=== PATIENT | female | born 1975 | race Caucasian/White ===

== ENCOUNTER 2022-07-15 11:07 | Outpatient (CLI) | payer BC, SELFPAY ==
--- NOTE | 2022-07-15 11:30 | CRLHL7_ITS ---
For Patients: As a result of the Century Cures Act, medical imaging exams and procedure reports are released immediately into your electronic medical record. You may view this report before your referring provider. If you have questions, please contact your health care provider. BILATERAL DIGITAL SCREENING MAMMOGRAM WITH TOMOSYNTHESIS AND COMPUTER-AIDED DETECTION CLINICAL HISTORY: Routine screening exam. COMPARISON: None. TECHNIQUE: Digital mammogram in CC and MLO projections including computer-aided detection (CAD). Tomosynthesis utilized. BREAST COMPOSITION: There are areas of scattered fibroglandular density. FINDINGS: RIGHT Breast: Focal nodular density within the lateral RIGHT breast 9 o`clock 8 cm from the nipple. LEFT Breast: No suspicious findings. IMPRESSION: RIGHT breast asymmetry/mass. RECOMMENDATIONS: Additional mammographic views of the RIGHT breast including 3D spot compression CC/MLO. RIGHT breast ultrasound may also be required. BI-RADS Category 0: Incomplete: Need Additional Imaging Evaluation and/or Prior Mammograms for Comparison [facility] will contact the patient for follow-up. A lay language report of this examination will be provided to the patient. Dictated by Michael Borrego MD @ 07/18/2022 9:19:11 AM jj/Dictated by: Michael Borrego MD @ 07/18/2022 9:19:00 AM (Electronically Signed)
== END 2022-07-15 11:08 | disposition home or self-care (01) ==
LOC: NFLDRAD 11:10
PROVIDERS: PCP Family Medicine; Visit Provider Family Medicine
DX: Z12.31 Encounter for screening mammogram for malignant neoplasm of breast (principal); N63.10 Unspecified lump in the right breast, unspecified quadrant
CPT/HCPCS: 77063; 77067

== ENCOUNTER 2022-07-21 09:35 | Outpatient (CLI) | payer BC, SELFPAY ==
--- NOTE | 2022-07-21 09:45 | CRLHL7_ITS ---
For Patients: As a result of the Cures Act, medical imaging exams and procedure reports are released immediately into your electronic medical record. You may view this report before your referring provider. If you have questions, please contact your health care provider. DIGITAL DIAGNOSTIC RIGHT MAMMOGRAM USING TOMOSYNTHESIS AND COMPUTER-AIDED DETECTION RIGHT BREAST ULTRASOUND CLINICAL HISTORY: RIGHT breast mass/asymmetry. COMPARISON: 07/15/2022. TECHNIQUE: Digital RIGHT mammogram in two projections. Tomosynthesis and CAD utilized. Real-time ultrasound imaging of RIGHT breast with imaging documentation. Scanning was performed by both the technologist and the radiologist. BREAST COMPOSITION: There are areas of scattered fibroglandular density. FINDINGS: 3D spot compression CC/MLO RIGHT breast mammogram images submitted. There is a nodular density within the upper outer quadrant of the RIGHT breast at 10 o`clock 6 cm from the nipple measuring 1 cm. No associated distortion. No adenopathy. Targeted RIGHT breast ultrasound performed in the upper outer quadrant at 10 o`clock 6 cm from the nipple. In this location there is a solid macrolobular hypoechoic mass without abnormal vascularity or distal acoustic shadowing measuring 8 x 10 millimeters. IMPRESSION: Solid 1 cm nodule RIGHT breast 10 o`clock 6 cm from the nipple. RECOMMENDATIONS: Ultrasound-guided core needle biopsy. Results and recommendations discussed with the patient. BI-RADS Category 4: Suspicious A lay language report of this examination will be provided to the patient. Dictated by: Michael Borrego MD @07/21/2022 11:01:39 AM jj/Dictated by: Michael Borrego MD @ 07/21/2022 12:24:00 PM (Electronically Signed)
--- NOTE | 2022-07-21 10:15 | CRLHL7_ITS ---
For Patients: As a result of the Cures Act, medical imaging exams and procedure reports are released immediately into your electronic medical record. You may view this report before your referring provider. If you have questions, please contact your health care provider. PLEASE SEE DIGITAL DIAGNOSTIC RIGHT MAMMOGRAM PERFORMED SAME DAY CRL:dion ashley/Dictated by: Michael Borrego MD @ 07/21/2022 11:01:00 AM (Electronically Signed)
== END 2022-07-21 09:36 | disposition home or self-care (01) ==
PROVIDERS: PCP Family Medicine; Visit Provider Family Medicine
DX: N63.10 Unspecified lump in the right breast, unspecified quadrant (principal); R92.8 Other abnormal and inconclusive findings on diagnostic imaging of breast
CPT/HCPCS: 76642; 77065; G0279

== ENCOUNTER 2022-07-29 10:58 | Outpatient (CLI) | payer BC, SELFPAY ==
--- NOTE | 2022-07-29 11:15 | CRLHL7_ITS ---
For Patients: As a result of the Century Cures Act, medical imaging exams and procedure reports are released immediately into your electronic medical record. You may view this report before your referring provider. If you have questions, please contact your health care provider. ULTRASOUND-GUIDED BREAST BIOPSY AND POST-BIOPSY DIGITAL MAMMOGRAM FOR BIOPSY MARKER PLACEMENT CLINICAL HISTORY: Indeterminate solid nodule RIGHT breast. COMPARISON STUDIES: 07/15/2022, 07/21/2022. TECHNIQUE: Real-time ultrasound with image documentation was used for targeting the breast lesion. Core biopsy specimens were obtained using an automated gun with a 18-gauge biopsy needle. Post-biopsy CC and ML digital mammograms were obtained to document position of the biopsy marker. CONSENT and TIME OUT: The procedure, risks, and alternatives were explained to the patient and a consent was signed. [place] Protocol was followed including pre-procedure verification that relevant information/documentation was available, reviewed and properly matched to the patient; consent accurate and complete; and equipment and supplies available. Time Out was conducted just prior to starting procedure to verify the four required elements: patient identity, correct side/site marked (if applicable), procedure, relevant images/results properly labeled and displayed (if applicable). PROCEDURE: The patient was positioned supine on the ultrasound table. The breast was prepped with ChloraPrep. 9 cc of 1 percent lidocaine used for local anesthesia. Core samples were obtained. A sterile metal biopsy clip was placed percutaneously to pola the lesion position within the breast. The specimens were placed in 10% formalin and sent to the pathology department. Pressure was held on the biopsy site until all bleeding subsided. The skin incision was closed with Steri-Strips. An ice pack was positioned over the biopsy site. Post-biopsy instructions were reviewed with the patient, and a written copy was given to her. LATERALITY: RIGHT breast. LESION: Circumscribed macrolobular hypoechoic nodule measuring 1.4 x 0.9 x 1.1 cm at 10 o`clock 6 cm from the nipple. SUSPICION FOR MALIGNANCY: Medium. NUMBER OF SAMPLES: 5. BIOPSY CLIP SHAPE: Oval. PROXIMITY OF CLIP TO TARGET: Within the lesion. IMPRESSION: Ultrasound-guided breast biopsy. When the pathology report is available, an addendum to this report will be made. ACR not applicable Dictated by Michael Borrego MD @ 07/29/2022 12:28:46 PM/donna LEILANI/Dictated by: Michael Borrego MD @ 07/29/2022 12:28:00 PM (Electronically Signed) ----- ADDENDUM ----- Addendum: Pathology consistent with a fibroadenoma. No atypia or malignancy. This is concordant. Routine screening mammography recommended. Dictated by Michael Borrego MD @ Jul 29 2022 12:28PM Signed by:?Michael Borrego MD @07/29/2022 4:10:41 PM (Electronic Signature)
--- NOTE | 2022-07-29 12:00 | CRLHL7_ITS ---
For Patients: As a result of the Century Cures Act, medical imaging exams and procedure reports are released immediately into your electronic medical record. You may view this report before your referring provider. If you have questions, please contact your health care provider. PLEASE SEE RIGHT ULTRASOUND-GUIDED BIOPSY OF SAME DAY. CRL:donna LEILANI/Dictated by: Michael Borrego MD @ 07/29/2022 12:28:00 PM (Electronically Signed)
== END 2022-07-29 10:59 | disposition home or self-care (01) ==
LOC: US 10:58
PROVIDERS: PCP Family Medicine; Visit Provider Family Medicine
DX: N63.10 Unspecified lump in the right breast, unspecified quadrant (principal); D24.1 Benign neoplasm of right breast; R92.8 Other abnormal and inconclusive findings on diagnostic imaging of breast; N64.59 Other signs and symptoms in breast
CPT/HCPCS: 19083; 77065; 88305; A4648; A4649

== ENCOUNTER 2024-03-27 09:33 | Outpatient (CLI) | payer BC, SELFPAY ==
--- NOTE | 2024-03-27 09:45 | CRLHL7_ITS ---
For Patients: As a result of the Century Cures Act, medical imaging exams and procedure reports are released immediately into your electronic medical record. You may view this report before your referring provider. If you have questions, please contact your health care provider. BILATERAL SCREENING MAMMOGRAM WITH COMPUTER-AIDED DETECTION AND TOMOSYNTHESIS TECHNIQUE: CC and MLO views were obtained. A RIGHT breast 2D XCCL view was also obtained These mammographic images have been obtained using full-field digital technique. These mammographic images were interpreted with the benefit of computer-aided detection. Breast Tomosynthesis was used in this interpretation. COMPARISON FILM: 07/29/22, 07/21/22, 07/15/22. FINDINGS: The breasts are heterogeneously dense, which may obscure small masses IMPRESSION: There is no radiographic evidence for malignancy. ASSESSMENT: BI-RADS Category 2: Benign RECOMMENDATION: Routine screening mammogram in 1 year. A lay language report of this examination will be provided to the patient. Michael Borrego M.D. Diagnostic Radiologist [email or web address] VICKY/kathy / bM/Dictated by: Michael Borrego MD @ 03/29/2024 11:39:00 AM (Electronically Signed)
== END 2024-03-27 09:34 | disposition home or self-care (01) ==
LOC: MAMMO 09:34
PROVIDERS: PCP Family Medicine; Visit Provider Family Medicine
DX: Z12.31 Encounter for screening mammogram for malignant neoplasm of breast (principal); R92.333 Mammographic heterogeneous density, bilateral breasts
CPT/HCPCS: 77063; 77067